=== PATIENT | male | born 1960 ===

== ENCOUNTER 2017-01-06 15:38 | Inpatient (IN) | payer BC, MEDICAID ==
[2017-01-06 15:59] LABS: BASO % 0.2 % (0.0-2.0); HEMATOCRIT 40.7 % (35.0-51.0); LYMPH # 0.6 K/uL (1.0-4.3); LYMPH % 5.2 % (20.0-40.0); MEAN CELL VOLUME 90.5 fL (80.0-94.0); MEAN CORPUSCULAR HEMOGLOBIN 30.6 pg (27.0-31.0); MEAN CORPUSCULAR HGB CONC 33.9 g/dL (33.0-37.0); MEAN PLATELET VOLUME 7.1 fL (7.2-11.7); MONO # 0.2 K/uL (0.0-0.8); PLATELET COUNT 245 K/uL (130-400); RED CELL DISTRIBUTION WIDTH 15.3 % (11.5-14.5); WHITE BLOOD COUNT 11.2 K/uL (4.8-10.8)
[2017-01-06 16:10] LABS: INR 1.1
--- NOTE | 2017-01-06 16:12 | CT ---
PROCEDURE: CT HEAD WITHOUT CONTRAST. HISTORY: Code Stroke COMPARISON: None available. TECHNIQUE: Axial computed tomography images were obtained through the head/brain without intravenous contrast. Radiation dose: Total exam DLP = 1080.63 mGy-cm. This CT exam was performed using one or more of the following dose reduction techniques: Automated exposure control, adjustment of the mA and/or kV according to patient size, and/or use of iterative reconstruction technique. FINDINGS: HEMORRHAGE: No intracranial hemorrhage. BRAIN: There is extensive right frontoparietal vasogenic edema. There is a partially calcified mass seen in the right centrum semiovale in the vertex. There is a calcified mass l in the posterior right temporal lobe with little surrounding vasogenic edema. There is vasogenic edema seen in the high left frontal white matter without evidence of a discrete mass on this noncontrast examination. VENTRICLES: No hydrocephalus. No midline shift. CALVARIUM: Prior bilateral high parietal craniotomies. PARANASAL SINUSES: Unremarkable as visualized. No significant inflammatory changes. MASTOID AIR CELLS: Unremarkable as visualized. No inflammatory changes. OTHER FINDINGS: None. IMPRESSION: No evidence of intracranial hemorrhage. No evidence of acute territorial infarct. Calcified posterior right temporal mass. Right frontoparietal vasogenic edema. High left frontal vasogenic edema. Bilateral old high parietal craniotomies. Partially calcified mass in right centrum semiovale. The findings in this examination were discussed by telephone with Dr. Boles at 4:09 p.m. on 01/06/2017.
--- NOTE | 2017-01-06 16:22 | C.PDOC ---
History Of Present Illness 56 year old male, whose PMHx includes metastatic cancer and baseline left-sided weakness, presents to the ED via EMS after being sent by long term for evaluation of altered mental status and slurred speech since earlier today. Patient had a seizure earlier today and was then noted to have slurred speech several hours after the episode. Patient was at radiation therapy prior to arrival. longterm denies fever, or any other complaints at this time. Additional history limited secondary to patient's clinical condition. Time Seen by Provider: 01/06/17 15:46 Chief Complaint (Nursing): Weakness/Neurological Deficit History Per: EMS History/Exam Limitations: clinical condition Onset/Duration Of Symptoms: Hrs Current Symptoms Are (Timing): Still Present Associated Symptoms Preceding Syncopal Episode: No Predromal Symptoms (Sudden Onset) Additional History Per: EMS, Care Home Past Medical History Reviewed: Historical Data, Nursing Documentation, Vital Signs Vital Signs: Last Vital Signs Temp 98.3 F 01/10/17 15:40 Pulse 54 L 01/10/17 16:19 Resp 18 01/10/17 15:40 BP 124/78 01/10/17 15:40 Pulse Ox 98 01/10/17 19:24 - Medical History PMH: Anemia, Seizures Surgical History: No Surg Hx Family History: States: Unknown Family Hx - Social History Hx Alcohol Use: No Hx Substance Use: No - Immunization History Hx Tetanus Toxoid Vaccination: No Hx Influenza Vaccination: No Hx Pneumococcal Vaccination: Yes (09/16/2016) Review Of Systems Review Of Systems: ROS cannot be obtained secondary to pt's inabilty to answer questions. ED Course And Treatment - Laboratory Results Result Diagrams: 01/10/17 07:25 01/10/17 07:25 ECG: Interpreted By Me, Viewed By Me ECG Rhythm: Sinus Rhythm Interpretation Of ECG: Normal Sinus Rhythm at 87bpm. Rate From EC O2 Sat by Pulse Oximetry: 98 (on RA) Pulse Ox Interpretation: Normal - CT Scan/US CT Head Other Rad Studies (CT/US): Interpreted By Me, Read By Radiologist, Radiology Report Reviewed CT/US Interpretation: PROCEDURE: CT HEAD WITHOUT CONTRAST. HISTORY: Code Stroke. COMPARISON: None available. TECHNIQUE: Axial computed tomography images were obtained through the head/brain without intravenous contrast. Radiation dose: Total exam DLP = 1080.63 mGy-cm. This CT exam was performed using one or more of the following dose reduction techniques: Automated exposure control, adjustment of the mA and/or kV according to patient size, and/ or use of iterative reconstruction technique. FINDINGS: HEMORRHAGE: No intracranial hemorrhage. BRAIN: There is extensive right frontoparietal vasogenic edema. There is a partially calcified mass seen in the right centrum semiovale in the vertex. There is a calcified mass l in the posterior right temporal lobe with little surrounding vasogenic edema. There is vasogenic edema seen in the high left frontal white matter without evidence of a discrete mass on this noncontrast examination. VENTRICLES: No hydrocephalus. No midline shift. CALVARIUM: Prior bilateral high parietal craniotomies. PARANASAL SINUSES: Unremarkable as visualized. No significant inflammatory changes. MASTOID AIR CELLS: Unremarkable as visualized. No inflammatory changes. OTHER FINDINGS: None. IMPRESSION: No evidence of intracranial hemorrhage. No evidence of acute territorial infarct. Calcified posterior right temporal mass. Right frontoparietal vasogenic edema. High left frontal vasogenic edema. Bilateral old high parietal craniotomies. Partially calcified mass in right centrum semiovale. The findings in this examination were discussed by telephone with Dr. Boles at 4:09 p.m. on 01/06/2017. NIHSS Stroke Scale - How Severe is the Stoke Level of Consciousness: 0=Alert LOC to Questions: 0=Both comments correct LOC to commands: 0=Obeys both correctly Best Gaze: 0=Normal Visual: 0=No visual loss Facial: 0=Normal Motor Arm - Left: 0=No drift Motor Arm - Right: 2=Falls before 10 sec Motor Leg - Left: 2=Falls before 5 sec Motor Leg - Right: 0=No drift Limb Ataxia: 0=Absent Sensory: 0=Normal Best Language: 1=Mild to moderate aphasia Dysarthia: 1=Mild to moderate slurring Extinction & Inattention (Neglect): 0=Normal, no object Score: 6 Severity Of Stroke: 5-15= Moderate Stroke rTPA Inclusion/Exclusion - Refusal of Treatment Patient Refused Treatment: No - Inclusion Criteria for Altepase Patient is 18 years or Older: Yes The Clinical Diagnosis of Ischemic Stroke That is Causing a Potentially Disabling Neurological Deficit: No Time of Onset is Well Established to be Less Than 270 Minute Before Treatment Would Begin: No Risk/Benefit Discussed With Patient/Family Member Present: No - Exclusion Criteria for Altepase History of: Brain Tumor Medical Decision Making Medical Decision Making: cva vs siezure pt with h/o of brain tumor not tpa candidate. discussed with dr garcia. Progress: Bloodwork, UA, CT Head, CXR, and EKG ordered and reviewed. discussed with pmd dr greenfield. accepts for obs Disposition - Disposition Disposition: HOSPITALIZED Disposition Time: 08:00 Condition: FAIR - Clinical Impression Clinical Impression: Altered mental status, Slurred speech - Scribe Statement The provider has reviewed the documentation as recorded by the Scribe (Aleena Greenfield) Provider Attestation: All medical record entries made by the Scribe were at my direction and personally dictated by me. I have reviewed the chart and agree that the record accurately reflects my personal performance of the history, physical exam, medical decision making, and the department course for this patient. I have also personally directed, reviewed, and agree with the discharge instructions and disposition.
[2017-01-06 16:26] LABS: ALB/GLOB RATIO 1.6 (1.0-2.1); BILIRUBIN,TOTAL 0.9 mg/dL (0.2-1.3); CALCIUM 9.1 mg/dl (8.6-10.4); CHOLESTEROL 165 mg/dL (0-199); GFR AFRICAN-AMERICAN > 60; GLUCOSE,RANDOM 126 mg/dL (75-110); TOTAL PROTEIN 6.9 g/dL (6.3-8.3)
[2017-01-06 16:32] LABS: ALKALINE PHOSPHATASE 97 U/L (38-126); ALT/SGPT 43 U/L (21-72); AST/SGOT 37 U/L (17-59); BLOOD UREA NITROGEN 19 mg/dL (9-20); CARBON DIOXIDE 25 mmol/L (22-30); CHLORIDE 103 mmol/L (98-107); POTASSIUM 4.2 mmol/L (3.6-5.2); SODIUM 138 mmol/L (132-148)
--- NOTE | 2017-01-06 16:44 | RAD ---
HISTORY: code stroke COMPARISON: No prior. FINDINGS: LUNGS: Shallow lung volumes. Subsegmental atelectasis and/or scarring left mid lung zone PLEURA: No significant pleural effusion identified, no pneumothorax apparent. CARDIOVASCULAR: Probable top-normal heart size allowing for shallow inspiration. Central pulmonary vasculature consistent with crowding due to shallow lung volumes. OSSEOUS STRUCTURES: No significant abnormalities. VISUALIZED UPPER ABDOMEN: Normal. OTHER FINDINGS: None. IMPRESSION: Shallow lung volumes. Left mid lung zone subsegmental atelectasis (and/or scarring)
[2017-01-06 17:41] LABS: NEUTROPHIL 93 % (50-75); TOTAL CELLS COUNTED 100
[2017-01-06] MEDS ORDERED: Magnesium Hydroxide Susp 30 ml UD PO PRN (22:28)
--- NOTE | 2017-01-06 22:31 | CP.PCM.HP ---
History of Present Illness - History of Present Illness History of Present Illness: Male with PMHanemia, seizure and metastatic cancer, stroke with residual left- sided weakness presents to the ER via EMS from the group home for evaluation of altered mental status and slurred speech. C/Oaltered mental status today morning. C/ - slurring of speech since today morning. No C/Oheadache, vomiting, fever, convulsions. Present on Admission - Present on Admission Any Indicators Present on Admission: No Past Patient History - Past Social History Smoking Status: Never Smoked - NEUROLOGICAL Hx Seizures: Yes - HEENT Hx HEENT Problems: No - RENAL Hx Chronic Kidney Disease: No - HEMATOLOGICAL/ONCOLOGICAL Hx Anemia: Yes - INTEGUMENTARY Hx Dermatological Problems: No - MUSCULOSKELETAL/RHEUMATOLOGICAL Hx Falls: Yes - GASTROINTESTINAL Hx Constipation: Yes Hx Gastroesophageal Reflux: Yes - GENITOURINARY/GYNECOLOGICAL Hx Genitourinary Disorders: No - PSYCHIATRIC Hx Substance Use: No - SURGICAL HISTORY Hx Surgeries: Yes Other/Comment: Craniotomy - ANESTHESIA Hx Anesthesia: No Hx Anesthesia Reactions: No Hx Malignant Hyperthermia: No Has any member of the family had a problem w/ anesthesia?: No Meds Home Medications: Home Medication List Medication Instructions Recorded Confirmed Type Levetiracetam [Keppra] 1,000 mg PO BID #60 tablet 01/12/17 Rx Allergies/Adverse Reactions: Allergies Allergy/AdvReac Type Severity Reaction Status Date / Time No Known Allergies Allergy Verified 01/06/17 15:44 Results - Vital Signs Recent Vital Signs: Last Vital Signs Temp 97.2 F L 01/06/17 19:38 Pulse 70 01/06/17 20:22 Resp 20 01/06/17 19:38 BP 131/84 01/06/17 19:38 Pulse Ox 96 01/06/17 19:38 - Labs Result Diagrams: 01/10/17 07:25 01/10/17 07:25 Labs: Laboratory Results - last 24 hr 01/06/17 01/06/17 01/06/17 15:56 15:56 15:56 WBC 11.2 H RBC 4.49 Hgb 13.8 Hct 40.7 MCV 90.5 MCH 30.6 MCHC 33.9 RDW 15.3 H Plt Count 245 MPV 7.1 L Neut % (Auto) 92.6 H Lymph % (Auto) 5.2 L [place] % (Auto) 2.0 Eos % (Auto) 0.0 Baso % (Auto) 0.2 Neut # 10.4 H Lymph # 0.6 L [place] # 0.2 Eos # 0.0 Baso # 0.0 Neutrophils % (Manual) 93 H Lymphocytes % (Manual) 5 L Monocytes % (Manual) 2 Platelet Estimate Normal PT 12.0 INR 1.1 APTT 29 Sodium 138 Potassium 4.2 Chloride 103 Carbon Dioxide 25 Anion Gap 14 BUN 19 Creatinine 0.5 L Est GFR ( Amer) > 60 Est GFR (Non-Af Amer) > 60 Random Glucose 126 H Hemoglobin A1c Calcium 9.1 Total Bilirubin 0.9 AST 37 ALT 43 Alkaline Phosphatase 97 Troponin I < 0.0120 Total Protein 6.9 Albumin 4.3 Globulin 2.7 Albumin/Globulin Ratio 1.6 Triglycerides 88 Cholesterol 165 LDL Cholesterol Direct 113 HDL Cholesterol 37 01/06/17 15:56 WBC RBC Hgb Hct MCV MCH MCHC RDW Plt Count MPV Neut % (Auto) Lymph % (Auto) [place] % (Auto) Eos % (Auto) Baso % (Auto) Neut # Lymph # [place] # Eos # Baso # Neutrophils % (Manual) Lymphocytes % (Manual) Monocytes % (Manual) Platelet Estimate PT INR APTT Sodium Potassium Chloride Carbon Dioxide Anion Gap BUN Creatinine Est GFR ( Amer) Est GFR (Non-Af Amer) Random Glucose Hemoglobin A1c 5.1 Calcium Total Bilirubin AST ALT Alkaline Phosphatase Troponin I Total Protein Albumin Globulin Albumin/Globulin Ratio Triglycerides Cholesterol LDL Cholesterol Direct HDL Cholesterol
[2017-01-07 07:09] LABS: ALB/GLOB RATIO 1.7 (1.0-2.1); ALKALINE PHOSPHATASE 93 U/L (38-126); ALT/SGPT 42 U/L (21-72); AST/SGOT 21 U/L (17-59); BILIRUBIN,TOTAL 0.7 mg/dL (0.2-1.3); BLOOD UREA NITROGEN 20 mg/dL (9-20); CALCIUM 9.1 mg/dl (8.6-10.4); CARBON DIOXIDE 25 mmol/L (22-30); CHLORIDE 103 mmol/L (98-107); GFR AFRICAN-AMERICAN > 60; GLUCOSE,RANDOM 76 mg/dL (75-110); POTASSIUM 3.4 mmol/L (3.6-5.2); SODIUM 138 mmol/L (132-148); TOTAL PROTEIN 6.4 g/dL (6.3-8.3)
[2017-01-07 07:25] LABS: BASO % 0.3 % (0.0-2.0); EOS % 0.1 % (0.0-4.0); HEMATOCRIT 40.4 % (35.0-51.0); LYMPH # 1.8 K/uL (1.0-4.3); LYMPH % 15.6 % (20.0-40.0); MEAN CELL VOLUME 91.7 fL (80.0-94.0); MEAN CORPUSCULAR HEMOGLOBIN 29.9 pg (27.0-31.0); MEAN CORPUSCULAR HGB CONC 32.6 g/dL (33.0-37.0); MEAN PLATELET VOLUME 7.3 fL (7.2-11.7); MONO # 1.1 K/uL (0.0-0.8); MONO % 9.4 % (0.0-10.0); RED CELL DISTRIBUTION WIDTH 15.2 % (11.5-14.5); WHITE BLOOD COUNT 11.8 K/uL (4.8-10.8)
[2017-01-07] MEDS ORDERED: LACOSAMIDE 100 MG PO SCH (10:00)
[2017-01-07] MEDS ORDERED: Potassium Chloride 20 mEq ER Tab PO ONE (10:30)
[2017-01-07] MEDS: Enoxaparin 40 mg Syringe SC SCH (11:22)
--- NOTE | 2017-01-07 13:36 | CARD ---
APPROVED REPORT EKG Measurement Heart [id number] <Conclusion> Normal sinus rhythm Normal ECG
--- NOTE | 2017-01-07 19:17 | CP.PCM.PN ---
Subjective - Date & Time of Evaluation Date of Evaluation: 01/07/17 Time of Evaluation: 12:00 - Subjective Subjective: clinically same Objective - Vital Signs/Intake and Output Vital Signs (last 24 hours): Temp Pulse Resp BP Pulse Ox 98.8 F 58 L 20 152/83 H 96 01/07/17 16:00 01/07/17 16:15 01/07/17 16:00 01/07/17 16:00 01/07/17 16:00 Intake and Output: 01/07/17 01/08/17 18:59 06:59 Intake Total 100 Balance 100 - Medications Medications: Current Medications Alprazolam (Xanax) 0.25 mg PO HS PRN PRN Reason: Anxiety Stop: 01/13/17 22:29 Aspirin (Aspirin) 325 mg PO DAILY [facility] Last Admin: 01/07/17 10:45 Dose: 325 mg Bisacodyl (Dulcolax) 10 mg RC DAILY PRN PRN Reason: Constipation Dexamethasone (Decadron) 4 mg PO BID [facility] Last Admin: 01/07/17 18:03 Dose: 4 mg Enoxaparin Sodium (Lovenox) 40 mg SC DAILY [facility] Last Admin: 01/07/17 11:22 Dose: 40 mg Escitalopram Oxalate (Lexapro) 10 mg PO DAILY [facility] Last Admin: 01/07/17 10:45 Dose: 10 mg Famotidine (Pepcid) 20 mg PO HS [facility] Folic Acid (Folic Acid) 1 mg PO DAILY [facility] Last Admin: 01/07/17 11:21 Dose: 1 mg Home Med (Lacosamide [Vimpat]) 100 mg PO BID [facility] Ibuprofen (Motrin Tab) 600 mg PO Q6 PRN PRN Reason: Pain, Mild (1-3) Last Admin: 01/07/17 06:22 Dose: 600 mg Levetiracetam (Keppra) 500 mg PO BID [facility] Last Admin: 01/07/17 18:03 Dose: 500 mg Magnesium Hydroxide (Milk Of Magnesia) 30 ml PO DAILY PRN PRN Reason: Constipation Rosuvastatin Calcium (Crestor) 10 mg PO HS [facility] - Labs Labs: 01/07/17 06:38 01/07/17 06:38 PT 12.0 SECONDS (9.7-12.2) 01/06/17 15:56 INR 1.1 01/06/17 15:56 APTT 29 SECONDS (21-34) 01/06/17 15:56 - Constitutional Appears: Well - Head Exam Head Exam: ATRAUMATIC, NORMAL INSPECTION, NORMOCEPHALIC - Eye Exam Eye Exam: EOMI, Normal appearance, PERRL Pupil Exam: NORMAL ACCOMODATION, PERRL - ENT Exam ENT Exam: Mucous Membranes Moist, Normal Exam - Neck Exam Neck Exam: Full ROM, Normal Inspection. absent: Lymphadenopathy - Respiratory Exam Respiratory Exam: Clear to Ausculation Bilateral, NORMAL BREATHING PATTERN - Cardiovascular Exam Cardiovascular Exam: REGULAR RHYTHM, +S1, +S2. absent: Murmur - GI/Abdominal Exam GI & Abdominal Exam: Soft, Normal Bowel Sounds. absent: Tenderness - Rectal Exam Rectal Exam: Deferred - Extremities Exam Extremities Exam: Full ROM, Normal Capillary Refill, Normal Inspection. absent : Joint Swelling, Pedal Edema - Back Exam Back Exam: NORMAL INSPECTION Assessment and Plan (1) Altered mental status Status: Acute (2) Slurred speech Status: Acute - Assessment and Plan (Free Text) Plan: Patient examined. Patient better. CT had not suggestive of intracranial hemorrhage or acute infarct. Frontoparietal vasogenic edema present. High left frontal parietal vasogenic edema present. Continue aspirin, levetiracetam. Continue supportive care.
[2017-01-07] MEDS ORDERED: Potassium Chloride 20 mEq ER Tab PO STA (20:24)
[2017-01-08] MEDS: Enoxaparin 40 mg Syringe SC SCH (09:32)
--- NOTE | 2017-01-08 17:00 | CP.PCM.PN ---
Subjective - Date & Time of Evaluation Date of Evaluation: 01/08/17 Time of Evaluation: 21:30 - Subjective Subjective: clinically same. Objective - Vital Signs/Intake and Output Vital Signs (last 24 hours): Temp Pulse Resp BP Pulse Ox 97.9 F 56 L 18 125/77 96 01/08/17 16:42 01/08/17 16:42 01/08/17 16:42 01/08/17 16:42 01/08/17 16:42 Intake and Output: 01/08/17 01/08/17 06:59 18:59 Intake Total 118 Output Total 200 Balance 118 -200 - Medications Medications: Current Medications Alprazolam (Xanax) 0.25 mg PO HS PRN PRN Reason: Anxiety Stop: 01/13/17 22:29 Last Admin: 01/07/17 21:53 Dose: 0.25 mg Aspirin (Aspirin) 325 mg PO DAILY [facility]PLAC[facility] BY [facility] Last Admin: 01/08/17 09:31 Dose: 325 mg Bisacodyl (Dulcolax) 10 mg RC DAILY PRN PRN Reason: Constipation Dexamethasone (Decadron) 4 mg PO BID [facility] BY [facility] Last Admin: 01/08/17 09:31 Dose: 4 mg Enoxaparin Sodium (Lovenox) 40 mg SC DAILY [facility]PL[facility] BY [facility] Last Admin: 01/08/17 09:32 Dose: 40 mg Escitalopram Oxalate (Lexapro) 10 mg PO DAILY [facility]PL[facility] BY [facility] Last Admin: 01/08/17 09:32 Dose: 10 mg Famotidine (Pepcid) 20 mg PO HS [facility]PLACED BY [facility] Last Admin: 01/07/17 21:17 Dose: 20 mg Folic Acid (Folic Acid) 1 mg PO DAILY [facility]PL[facility] BY [facility] Last Admin: 01/08/17 09:32 Dose: 1 mg Home Med (Lacosamide [Vimpat]) 100 mg PO BID [facility]PL[facility] BY [facility] Ibuprofen (Motrin Tab) 600 mg PO Q6 PRN PRN Reason: Pain, Mild (1-3) Last Admin: 01/07/17 06:22 Dose: 600 mg Levetiracetam (Keppra) 500 mg PO BID [facility]PL[facility] BY [facility] Last Admin: 01/08/17 09:32 Dose: 500 mg Magnesium Hydroxide (Milk Of Magnesia) 30 ml PO DAILY PRN PRN Reason: Constipation Rosuvastatin Calcium (Crestor) 10 mg PO HS REPLACED BY [facility] Last Admin: 11/22/17 21:17 Dose: 10 mg - Labs Labs: 01/07/17 06:38 01/07/17 06:38 PT 12.0 SECONDS (9.7-12.2) 01/06/17 15:56 INR 1.1 01/06/17 15:56 APTT 29 SECONDS (21-34) 01/06/17 15:56 - Constitutional Appears: Well - Head Exam Head Exam: ATRAUMATIC, NORMAL INSPECTION, NORMOCEPHALIC - Eye Exam Eye Exam: EOMI, Normal appearance, PERRL Pupil Exam: NORMAL ACCOMODATION, PERRL - ENT Exam ENT Exam: Mucous Membranes Moist, Normal Exam - Neck Exam Neck Exam: Full ROM, Normal Inspection. absent: Lymphadenopathy - Respiratory Exam Respiratory Exam: Clear to Ausculation Bilateral, NORMAL BREATHING PATTERN - GI/Abdominal Exam GI & Abdominal Exam: Soft, Normal Bowel Sounds. absent: Tenderness - Rectal Exam Rectal Exam: Deferred - Extremities Exam Extremities Exam: Full ROM, Normal Capillary Refill, Normal Inspection. absent : Joint Swelling, Pedal Edema - Back Exam Back Exam: NORMAL INSPECTION Assessment and Plan (1) Altered mental status Status: Acute (2) Slurred speech Status: Acute - Assessment and Plan (Free Text) Plan: Patient examined. Patient better. Continue aspirin. Continue supportive care.
--- NOTE | 2017-01-09 07:15 | CON ---
NEUROLOGY CONSULTATION REASON FOR CONSULTATION: CVA. HISTORY OF PRESENTING ILLNESS: The patient is a 56-year-old male with history of metastatic cancer to the brain with left-sided baseline weakness, who was brought to the emergency room [facility] by [facility] after he was noted to be little confused and having slurring of speech. The patient had a seizure yesterday earlier and noted to have slurring of speech several hours after the episode. The patient had a radiation yesterday. The patient himself said that he had a seizure yesterday. He had craniotomy in the past and is undergoing radiation therapy. PAST MEDICAL HISTORY: Includes seizures disorder, metastatic brain cancer with baseline left-sided weakness. PAST SURGICAL HISTORY: Includes craniotomy. REVIEW OF SYSTEMS: Denies any headache, chest pain, shortness of breath, abdominal pain, constipation, diarrhea, dysuria, cough or sputum production. MEDICATIONS IN [facility]: Include Tylenol, Xanax, Vimpat 100 mg b.i.d, Motrin, folic acid, Lexapro, Decadron 4 mg daily, Dulcolax, Keppra 500 mg bedtime, lidocaine, oxycodone, naproxen, ranitidine and polyethylene glycol. SOCIAL HISTORY: The patient denies smoking, use of alcohol or illicit drugs. FAMILY HISTORY: Reviewed and noncontributory to the case. PHYSICAL EXAMINATION: GENERAL: The patient is middle-aged male, lying on the bed in no acute distress. VITAL SIGNS: His blood pressure is 148/84, heart rate is 54 per minute, breathing at the rate of 16 per minute, and temperature is 97.8 degrees Fahrenheit. HEENT: Head is normocephalic. Craniotomy scar noted. NECK: Supple. There are no carotid bruits. LUNGS: Clear. CARDIOVASCULAR: S1 and S2 audible. No murmurs. ABDOMEN: Soft and nontender. Bowel sounds present. NEUROLOGY EXAMINATION: Mental status: The patient is awake and alert, oriented to place, year and person. His speech is slightly dysarthric. Naming is good. Cranial nerve examination: Pupils are 3 mm bilaterally, reactive to light. Visual dickerson are full. Extraocular movements are intact. There is decreased nasolabial fold on the left side. There is left-sided hemiparesis. Power in the left arm about 3/5. Power in the left lower extremity is 3/5. Power in the right lower extremity is also 3-4/5. Plantars are upgoing on the left and downgoing on the right side. Gait is deferred at the moment. Cerebellar examination: No gross dysmetria seen. LABORATORY DATA: The labs reviewed, which shows WBC of 11.8 , hemoglobin 13.2, hematocrit of 40.4, and platelets of 251. His INR is 1.1. Sodium is 138, potassium 3.4, chloride 103, carbon dioxide 25, BUN of 20, creatinine 0.5, and glucose of 76. He had a CT scan of the head done, which shows no evidence of intracranial hemorrhage, no evidence of acute territorial infarct, calcified posterior right tentorial mass, right frontoparietal vasogenic edema, vasogenic edema, bilateral old high parietal craniotomies, partially calcified mass in the right centrum semiovale. IMPRESSION: 1. Breakthrough seizures with history of seizure disorder. 2. History of metastatic brain cancer. RECOMMENDATIONS: 1. The patient was apparently on Vimpat 100 b.i.d. and Keppra at nighttime. The patient did not have any Vimpat since he has been admitted in the hospital as it is not . We will increase the dose of Keppra to 500 mg b.i.d. and hold Vimpat. The combination of Vimpat and Keppra does not had much protection. If the patient has more seizures, we will consider increasing Keppra dose or add another antiepileptic medication. 2. There is no evidence that patient had a cerebrovascular accident. 3. The dose of Keppra is to be increased to mg twice a day because of the persistence of vasogenic edema. 4. If the patient remains stable and has no further seizures, [facility] may be [facility] to [facility]. Thank you for the opportunity to participate in the care of this patient. Munir Naik MD
[2017-01-09] MEDS: Enoxaparin 40 mg Syringe SC SCH (10:45)
[2017-01-09] MEDS ORDERED: Potassium Chloride 20 mEq ER Tab PO STA (17:35)
--- NOTE | 2017-01-09 17:58 | CP.PCM.PN ---
Subjective - Date & Time of Evaluation Date of Evaluation: 01/09/17 Time of Evaluation: 12:00 - Subjective Subjective: clinically same Objective - Vital Signs/Intake and Output Vital Signs (last 24 hours): Temp Pulse Resp BP Pulse Ox 97.9 F 58 L 20 109/70 96 01/09/17 15:20 01/09/17 15:20 01/09/17 15:20 01/09/17 15:20 01/09/17 15:20 Intake and Output: 01/09/17 01/09/17 06:59 18:59 Intake Total 720 260 Output Total 300 Balance 420 260 - Medications Medications: Current Medications Alprazolam (Xanax) 0.25 mg PO HS PRN PRN Reason: Anxiety Stop: 01/13/17 22:29 Last Admin: 01/08/17 22:19 Dose: 0.25 mg Aspirin (Aspirin) 325 mg PO DAILY [facility] Last Admin: 01/09/17 10:45 Dose: 325 mg Bisacodyl (Dulcolax) 10 mg RC DAILY PRN PRN Reason: Constipation Dexamethasone (Decadron) 4 mg PO BID [facility] Last Admin: 01/09/17 10:45 Dose: 4 mg Enoxaparin Sodium (Lovenox) 40 mg SC DAILY [facility] Last Admin: 01/09/17 10:45 Dose: 40 mg Escitalopram Oxalate (Lexapro) 10 mg PO DAILY [facility] Last Admin: 01/09/17 10:45 Dose: 10 mg Famotidine (Pepcid) 20 mg PO HS [facility] Last Admin: 01/08/17 21:46 Dose: 20 mg Folic Acid (Folic Acid) 1 mg PO DAILY [facility] Last Admin: 01/09/17 10:44 Dose: 1 mg Home Med (Lacosamide [Vimpat]) 100 mg PO BID [facility] Ibuprofen (Motrin Tab) 600 mg PO Q6 PRN PRN Reason: Pain, Mild (1-3) Last Admin: 01/07/17 06:22 Dose: 600 mg Levetiracetam (Keppra) 750 mg PO BID [facility] Magnesium Hydroxide (Milk Of Magnesia) 30 ml PO DAILY PRN PRN Reason: Constipation Rosuvastatin Calcium (Crestor) 10 mg PO HS [facility] Last Admin: 01/08/17 21:46 Dose: 10 mg - Labs Labs: 01/07/17 06:38 01/07/17 06:38 PT 12.0 SECONDS (9.7-12.2) 01/06/17 15:56 INR 1.1 01/06/17 15:56 APTT 29 SECONDS (21-34) 01/06/17 15:56 - Constitutional Appears: Well - Head Exam Head Exam: ATRAUMATIC, NORMAL INSPECTION, NORMOCEPHALIC - Eye Exam Eye Exam: EOMI, Normal appearance, PERRL Pupil Exam: NORMAL ACCOMODATION, PERRL - ENT Exam ENT Exam: Mucous Membranes Moist, Normal Exam - Neck Exam Neck Exam: Full ROM, Normal Inspection. absent: Lymphadenopathy - Respiratory Exam Respiratory Exam: Decreased Breath Sounds - Cardiovascular Exam Cardiovascular Exam: REGULAR RHYTHM, +S1, +S2 - GI/Abdominal Exam GI & Abdominal Exam: Soft, Diminished Bowel Sounds - Rectal Exam Rectal Exam: Deferred Assessment and Plan (1) Altered mental status Status: Acute (2) Slurred speech Status: Acute - Assessment and Plan (Free Text) Plan: Patient examined. Patient better. Continue aspirin. Continue supportive care.
[2017-01-10 07:46] LABS: BASO % 0.1 % (0.0-2.0); HEMATOCRIT 36.3 % (35.0-51.0); LYMPH % 9.2 % (20.0-40.0); MEAN CELL VOLUME 89.9 fL (80.0-94.0); MEAN CORPUSCULAR HEMOGLOBIN 30.7 pg (27.0-31.0); MEAN CORPUSCULAR HGB CONC 34.2 g/dL (33.0-37.0); MEAN PLATELET VOLUME 7.6 fL (7.2-11.7); MONO # 0.9 K/uL (0.0-0.8); MONO % 8.9 % (0.0-10.0); PLATELET COUNT 259 K/uL (130-400); RED CELL DISTRIBUTION WIDTH 15.1 % (11.5-14.5); WHITE BLOOD COUNT 10.6 K/uL (4.8-10.8)
[2017-01-10 08:44] LABS: ALB/GLOB RATIO 1.7 (1.0-2.1); ALKALINE PHOSPHATASE 80 U/L (38-126); ALT/SGPT 42 U/L (21-72); AST/SGOT 20 U/L (17-59); BILIRUBIN,TOTAL 0.6 mg/dL (0.2-1.3); BLOOD UREA NITROGEN 29 mg/dL (9-20); CALCIUM 8.7 mg/dl (8.6-10.4); CARBON DIOXIDE 23 mmol/L (22-30); CHLORIDE 104 mmol/L (98-107); GFR AFRICAN-AMERICAN > 60; GLUCOSE,RANDOM 88 mg/dL (75-110); POTASSIUM 4.2 mmol/L (3.6-5.2); SODIUM 135 mmol/L (132-148); TOTAL PROTEIN 5.9 g/dL (6.3-8.3)
[2017-01-10 11:11] LABS: NEUTROPHIL 86 % (50-75); TOTAL CELLS COUNTED 100
[2017-01-10 11:13] LABS: GIANT PLATELETS PRESENT; LARGE PLATELETS PRESENT
[2017-01-10] MEDS: Enoxaparin 40 mg Syringe SC SCH (11:28)
--- NOTE | 2017-01-10 14:34 | CP.PCM.PN ---
Subjective - Date & Time of Evaluation Date of Evaluation: 01/10/17 Time of Evaluation: 10:20 - Subjective Subjective: clinically same Objective - Vital Signs/Intake and Output Vital Signs (last 24 hours): Temp Pulse Resp BP Pulse Ox 98.1 F 66 20 122/79 96 01/10/17 08:34 01/10/17 12:40 01/10/17 08:34 01/10/17 08:34 01/10/17 08:34 Intake and Output: 01/10/17 01/10/17 06:59 18:59 Intake Total 240 0 Output Total 250 800 Balance -10 -800 - Medications Medications: Current Medications Alprazolam (Xanax) 0.25 mg PO HS PRN PRN Reason: Anxiety Stop: 01/13/17 22:29 Last Admin: 01/09/17 21:33 Dose: 0.25 mg Aspirin (Aspirin) 325 mg PO DAILY [facility] Last Admin: 01/10/17 11:28 Dose: 325 mg Bisacodyl (Dulcolax) 10 mg RC DAILY PRN PRN Reason: Constipation Dexamethasone (Decadron) 4 mg PO BID [facility] Last Admin: 01/10/17 11:27 Dose: 4 mg Enoxaparin Sodium (Lovenox) 40 mg SC DAILY [facility] Last Admin: 01/10/17 11:28 Dose: 40 mg Escitalopram Oxalate (Lexapro) 10 mg PO DAILY [facility] Last Admin: 01/10/17 11:28 Dose: 10 mg Famotidine (Pepcid) 20 mg PO HS [facility] Last Admin: 01/09/17 22:12 Dose: 20 mg Folic Acid (Folic Acid) 1 mg PO DAILY [facility] Last Admin: 01/10/17 11:27 Dose: 1 mg Ibuprofen (Motrin Tab) 600 mg PO Q6 PRN PRN Reason: Pain, Mild (1-3) Last Admin: 01/09/17 20:01 Dose: 600 mg Levetiracetam (Keppra) 750 mg PO BID [facility] Last Admin: 01/10/17 11:27 Dose: 750 mg Magnesium Hydroxide (Milk Of Magnesia) 30 ml PO DAILY PRN PRN Reason: Constipation Rosuvastatin Calcium (Crestor) 10 mg PO HS [facility] Last Admin: 01/09/17 21:34 Dose: 10 mg - Labs Labs: 01/10/17 07:25 01/10/17 07:25 PT 12.0 SECONDS (9.7-12.2) 01/06/17 15:56 INR 1.1 01/06/17 15:56 APTT 29 SECONDS (21-34) 01/06/17 15:56 - Constitutional Appears: Well - Head Exam Head Exam: ATRAUMATIC, NORMAL INSPECTION, NORMOCEPHALIC - Eye Exam Eye Exam: EOMI, Normal appearance, PERRL Pupil Exam: NORMAL ACCOMODATION, PERRL - ENT Exam ENT Exam: Mucous Membranes Moist, Normal Exam - Neck Exam Neck Exam: Full ROM, Normal Inspection. absent: Lymphadenopathy - Respiratory Exam Respiratory Exam: Decreased Breath Sounds - Cardiovascular Exam Cardiovascular Exam: REGULAR RHYTHM, +S1, +S2 - GI/Abdominal Exam GI & Abdominal Exam: Soft, Diminished Bowel Sounds - Rectal Exam Rectal Exam: Deferred Assessment and Plan (1) Altered mental status Status: Acute (2) Slurred speech Status: Acute - Assessment and Plan (Free Text) Plan: Patient examined. Patient better. Continue aspirin. Continue supportive care.
[2017-01-11] MEDS: Enoxaparin 40 mg Syringe SC SCH (09:49)
--- NOTE | 2017-01-11 16:58 | CP.PCM.PN ---
Subjective - Date & Time of Evaluation Date of Evaluation: 01/11/17 Time of Evaluation: 10:40 - Subjective Subjective: clinically same Objective - Vital Signs/Intake and Output Vital Signs (last 24 hours): Temp Pulse Resp BP Pulse Ox 98.4 F 60 20 114/75 96 01/11/17 16:04 01/11/17 16:04 01/11/17 16:04 01/11/17 16:04 01/11/17 16:04 Intake and Output: 01/11/17 01/11/17 06:59 18:59 Intake Total 0 Output Total 100 Balance -100 - Medications Medications: Current Medications Alprazolam (Xanax) 0.25 mg PO HS PRN PRN Reason: Anxiety Stop: 01/13/17 22:29 Last Admin: 01/10/17 21:08 Dose: 0.25 mg Aspirin (Aspirin) 325 mg PO DAILY [facility] Last Admin: 01/11/17 09:49 Dose: 325 mg Bisacodyl (Dulcolax) 10 mg RC DAILY PRN PRN Reason: Constipation Dexamethasone (Decadron) 4 mg PO BID [facility] Last Admin: 01/11/17 09:49 Dose: 4 mg Enoxaparin Sodium (Lovenox) 40 mg SC DAILY [facility] Last Admin: 01/11/17 09:49 Dose: 40 mg Escitalopram Oxalate (Lexapro) 10 mg PO DAILY [facility] Last Admin: 01/11/17 09:49 Dose: 10 mg Famotidine (Pepcid) 20 mg PO HS [facility] Last Admin: 01/10/17 21:08 Dose: 20 mg Folic Acid (Folic Acid) 1 mg PO DAILY [facility] Last Admin: 01/11/17 09:49 Dose: 1 mg Ibuprofen (Motrin Tab) 600 mg PO Q6 PRN PRN Reason: Pain, Mild (1-3) Last Admin: 01/09/17 20:01 Dose: 600 mg Levetiracetam (Keppra) 750 mg PO BID [facility] Last Admin: 01/11/17 09:49 Dose: 750 mg Magnesium Hydroxide (Milk Of Magnesia) 30 ml PO DAILY PRN PRN Reason: Constipation Rosuvastatin Calcium (Crestor) 10 mg PO HS [facility] Last Admin: 01/10/17 21:08 Dose: 10 mg - Labs Labs: 01/10/17 07:25 01/10/17 07:25 PT 12.0 SECONDS (9.7-12.2) 01/06/17 15:56 INR 1.1 01/06/17 15:56 APTT 29 SECONDS (21-34) 01/06/17 15:56 - Constitutional Appears: Well - Head Exam Head Exam: ATRAUMATIC, NORMAL INSPECTION, NORMOCEPHALIC - Eye Exam Eye Exam: EOMI, Normal appearance, PERRL Pupil Exam: NORMAL ACCOMODATION, PERRL - ENT Exam ENT Exam: Mucous Membranes Moist, Normal Exam - Neck Exam Neck Exam: Full ROM, Normal Inspection. absent: Lymphadenopathy - Respiratory Exam Respiratory Exam: Clear to Ausculation Bilateral, NORMAL BREATHING PATTERN - Cardiovascular Exam Cardiovascular Exam: REGULAR RHYTHM, +S1, +S2. absent: Murmur - GI/Abdominal Exam GI & Abdominal Exam: Soft, Normal Bowel Sounds. absent: Tenderness - Rectal Exam Rectal Exam: Deferred - Extremities Exam Extremities Exam: Full ROM, Normal Capillary Refill, Normal Inspection. absent : Joint Swelling, Pedal Edema - Back Exam Back Exam: NORMAL INSPECTION Assessment and Plan (1) Altered mental status Status: Acute (2) Slurred speech Status: Acute - Assessment and Plan (Free Text) Plan: Patient examined. Patient better. Continue aspirin. Continue supportive care.
--- NOTE | 2017-01-11 20:49 | CP.PCM.PN ---
Subjective - Date & Time of Evaluation Date of Evaluation: 01/11/17 Time of Evaluation: 20:40 - Subjective Subjective: House Doctor Note House doctor paged for new onset right upper lip and cheek twitching. Patient was seen and examined and no facial twitching observed. Cranial nerves were intact. Patient had no loss of sensation. Dr. Naik (neurology on consult) was contacted who recommended giving Keppra 500mg stat dose and increasing patient' s daily Keppra from 750mg BID to 1000mg BID. Objective - Vital Signs/Intake and Output Vital Signs (last 24 hours): Temp Pulse Resp BP Pulse Ox 98.4 F 60 20 114/75 96 01/11/17 16:04 01/11/17 16:04 01/11/17 16:04 01/11/17 16:04 01/11/17 16:04 - Medications Medications: Current Medications Alprazolam (Xanax) 0.25 mg PO HS PRN PRN Reason: Anxiety Stop: 01/13/17 22:29 Last Admin: 01/10/17 21:08 Dose: 0.25 mg Aspirin (Aspirin) 325 mg PO DAILY [facility] Last Admin: 01/11/17 09:49 Dose: 325 mg Bisacodyl (Dulcolax) 10 mg RC DAILY PRN PRN Reason: Constipation Dexamethasone (Decadron) 4 mg PO BID [facility] Last Admin: 01/11/17 17:07 Dose: 4 mg Enoxaparin Sodium (Lovenox) 40 mg SC DAILY [facility] Last Admin: 01/11/17 09:49 Dose: 40 mg Escitalopram Oxalate (Lexapro) 10 mg PO DAILY [facility] Last Admin: 01/11/17 09:49 Dose: 10 mg Famotidine (Pepcid) 20 mg PO HS [facility] Last Admin: 01/10/17 21:08 Dose: 20 mg Folic Acid (Folic Acid) 1 mg PO DAILY [facility] Last Admin: 01/11/17 09:49 Dose: 1 mg Ibuprofen (Motrin Tab) 600 mg PO Q6 PRN PRN Reason: Pain, Mild (1-3) Last Admin: 01/09/17 20:01 Dose: 600 mg Levetiracetam (Keppra) 1,000 mg PO BID [facility] Magnesium Hydroxide (Milk Of Magnesia) 30 ml PO DAILY PRN PRN Reason: Constipation Rosuvastatin Calcium (Crestor) 10 mg PO HS [facility] Last Admin: 01/10/17 21:08 Dose: 10 mg - Labs Labs: 01/10/17 07:25 01/10/17 07:25 PT 12.0 SECONDS (9.7-12.2) 01/06/17 15:56 INR 1.1 01/06/17 15:56 APTT 29 SECONDS (21-34) 01/06/17 15:56
[2017-01-12 09:09] VITALS: O2SAT 97
[2017-01-12] MEDS: Enoxaparin 40 mg Syringe SC SCH (10:40)
--- NOTE | 2017-01-12 14:56 | CP.PCM.PN ---
Subjective - Date & Time of Evaluation Date of Evaluation: 01/12/17 Time of Evaluation: 14:56 - Subjective Subjective: patient was admitted for weakness and slurred speech. patient is AAO X 3 NO SIGN OF CHEST PAIN SLURRED SPEECH OR SOB NOTED; PATIENT IS STILL HAVING LEFT SIDE WEAKNESS AND NO SIGN OF ACUTE DISTRESS NOTED Objective - Vital Signs/Intake and Output Vital Signs (last 24 hours): Temp Pulse Resp BP Pulse Ox 97.3 F L 67 18 119/75 97 01/12/17 07:55 01/12/17 08:10 01/12/17 07:55 01/12/17 07:55 01/12/17 07:55 Intake and Output: 01/12/17 01/12/17 06:59 18:59 Intake Total 320 Output Total 100 Balance 220 - Medications Medications: Current Medications Alprazolam (Xanax) 0.25 mg PO HS PRN PRN Reason: Anxiety Stop: 01/13/17 22:29 Last Admin: 01/11/17 21:04 Dose: 0.25 mg Aspirin (Aspirin) 325 mg PO DAILY [facility] Last Admin: 01/12/17 10:40 Dose: 325 mg Bisacodyl (Dulcolax) 10 mg RC DAILY PRN PRN Reason: Constipation Dexamethasone (Decadron) 4 mg PO BID [facility] Last Admin: 01/12/17 10:40 Dose: 4 mg Enoxaparin Sodium (Lovenox) 40 mg SC DAILY [facility] Last Admin: 01/12/17 10:40 Dose: 40 mg Escitalopram Oxalate (Lexapro) 10 mg PO DAILY [facility] Last Admin: 01/12/17 10:40 Dose: 10 mg Famotidine (Pepcid) 20 mg PO HS [facility] Last Admin: 01/11/17 21:04 Dose: 20 mg Folic Acid (Folic Acid) 1 mg PO DAILY [facility] Last Admin: 01/12/17 10:40 Dose: 1 mg Ibuprofen (Motrin Tab) 600 mg PO Q6 PRN PRN Reason: Pain, Mild (1-3) Last Admin: 01/09/17 20:01 Dose: 600 mg Levetiracetam (Keppra) 1,000 mg PO BID [facility] Last Admin: 01/12/17 10:39 Dose: 1,000 mg Magnesium Hydroxide (Milk Of Magnesia) 30 ml PO DAILY PRN PRN Reason: Constipation Rosuvastatin Calcium (Crestor) 10 mg PO HS [facility] Last Admin: 01/11/17 21:04 Dose: 10 mg - Labs Labs: 01/10/17 07:25 01/10/17 07:25 PT 12.0 SECONDS (9.7-12.2) 01/06/17 15:56 INR 1.1 01/06/17 15:56 APTT 29 SECONDS (21-34) 01/06/17 15:56 - Head Exam Head Exam: NORMAL INSPECTION - Eye Exam Eye Exam: Normal appearance Pupil Exam: NORMAL ACCOMODATION, PERRL - Respiratory Exam Respiratory Exam: Clear to Ausculation Bilateral - Cardiovascular Exam Cardiovascular Exam: +S1, +S2 - GI/Abdominal Exam GI & Abdominal Exam: Normal Bowel Sounds - Extremities Exam Extremities Exam: Normal Capillary Refill Additional comments: LEFT SIDE WEAKNESS Assessment and Plan - Assessment and Plan (Free Text) Assessment: A/P PATIENT WAS SEEN AND EXAMINED AT THE BEDSIDE NO SLURRED SPEECH NOTED; HEAD CT WAS NEGATIVE FOR STROKE; PATIENT MEDICATION WAS CHANGE AND DR Quintin PAUL CLEAR THE PATIENT TO BE DC DISCHARGE TO [facility] UNDER DR Sharon MORALEZ---CALL DR Sharon MORALEZ FOR ADMITTING ORDER CONTINUE ALL HOME MED PER MEDICATION RECONCILIATION KEPPRA WAS INCREASE TO 1000MG BID PO AND VIMPAT WAS STOPPED PER NEUROLOGIST FOR FURTHER QUESTION CALL DR Sharon MORALEZ SERVICE DISCUSS DISCHARGE PLANNING WITH PATIENT WHO AGREE AND VERBALIZED UNDERSTANDING
[2017-01-12 16:24] VITALS: BP 119/74; PULSE 55; RESP 20; TEMP 98.2
--- NOTE | 2017-01-12 20:09 | CP.PCM.PN ---
Subjective - Date & Time of Evaluation Date of Evaluation: 01/12/17 Time of Evaluation: 11:20 - Subjective Subjective: clinically same Objective - Vital Signs/Intake and Output Vital Signs (last 24 hours): Temp Pulse Resp BP Pulse Ox 98.2 F 55 L 20 119/74 97 01/12/17 15:23 01/12/17 18:00 01/12/17 15:23 01/12/17 15:23 01/12/17 15:23 - Medications Medications: Current Medications Alprazolam (Xanax) 0.25 mg PO HS PRN PRN Reason: Anxiety Stop: 01/13/17 22:29 Last Admin: 01/11/17 21:04 Dose: 0.25 mg Aspirin (Aspirin) 325 mg PO DAILY [facility] Last Admin: 01/12/17 10:40 Dose: 325 mg Bisacodyl (Dulcolax) 10 mg RC DAILY PRN PRN Reason: Constipation Dexamethasone (Decadron) 4 mg PO BID [facility] Last Admin: 01/12/17 17:52 Dose: 4 mg Enoxaparin Sodium (Lovenox) 40 mg SC DAILY [facility] Last Admin: 01/12/17 10:40 Dose: 40 mg Escitalopram Oxalate (Lexapro) 10 mg PO DAILY [facility] Last Admin: 01/12/17 10:40 Dose: 10 mg Famotidine (Pepcid) 20 mg PO HS [facility] Last Admin: 01/11/17 21:04 Dose: 20 mg Folic Acid (Folic Acid) 1 mg PO DAILY [facility] Last Admin: 01/12/17 10:40 Dose: 1 mg Ibuprofen (Motrin Tab) 600 mg PO Q6 PRN PRN Reason: Pain, Mild (1-3) Last Admin: 01/09/17 20:01 Dose: 600 mg Levetiracetam (Keppra) 1,000 mg PO BID [facility] Last Admin: 01/12/17 17:52 Dose: 1,000 mg Magnesium Hydroxide (Milk Of Magnesia) 30 ml PO DAILY PRN PRN Reason: Constipation Rosuvastatin Calcium (Crestor) 10 mg PO HS [facility] Last Admin: 01/11/17 21:04 Dose: 10 mg - Labs Labs: 01/10/17 07:25 01/10/17 07:25 PT 12.0 SECONDS (9.7-12.2) 01/06/17 15:56 INR 1.1 01/06/17 15:56 APTT 29 SECONDS (21-34) 01/06/17 15:56 - Constitutional Appears: Well - Head Exam Head Exam: ATRAUMATIC, NORMAL INSPECTION, NORMOCEPHALIC - Eye Exam Eye Exam: EOMI, Normal appearance, PERRL Pupil Exam: NORMAL ACCOMODATION, PERRL - ENT Exam ENT Exam: Mucous Membranes Moist, Normal Exam - Neck Exam Neck Exam: Full ROM, Normal Inspection. absent: Lymphadenopathy - Respiratory Exam Respiratory Exam: Clear to Ausculation Bilateral, NORMAL BREATHING PATTERN - Cardiovascular Exam Cardiovascular Exam: REGULAR RHYTHM, +S1, +S2. absent: Murmur - GI/Abdominal Exam GI & Abdominal Exam: Soft, Normal Bowel Sounds. absent: Tenderness - Rectal Exam Rectal Exam: Deferred - Extremities Exam Extremities Exam: Full ROM, Normal Capillary Refill, Normal Inspection. absent : Joint Swelling, Pedal Edema - Back Exam Back Exam: NORMAL INSPECTION Assessment and Plan (1) Altered mental status Status: Acute (2) Slurred speech Status: Acute - Assessment and Plan (Free Text) Plan: Patient examined. Patient better. Continue aspirin. Continue supportive care.
== END 2017-01-12 20:15 | disposition home or self-care (01) | DRG 101 ==
LOC: C.ER 15:38 → C.9E 17:21 → C.6T 18:14 → OBSVTOIN 01-07 10:39
PROVIDERS: ADMIT Internal Medicine Nephrology; ATTEND Internal Medicine Nephrology
DX: G40.909 Epilepsy, unspecified, not intractable, without status epilepticus (principal); C79.31 Secondary malignant neoplasm of brain; I69.354 Hemiplegia and hemiparesis following cerebral infarction affecting left non-dominant side; K21.9 Gastro-esophageal reflux disease without esophagitis; R47.81 Slurred speech; D64.9 Anemia, unspecified; R25.3 Fasciculation